=== PATIENT | female | born 1945 | race Caucasian/White ===

== ENCOUNTER → 2017-12-12 12:55 | Outpatient (CLI) | payer MEDICARE, MEDICAID ==
[~2017-12-12 12:55] MED LIST: ALENDRONATE SOD70 MG PO; ATIVAN1 MG PO; LUNESTA3 MG PO; PRAVACHOL40 MG PO; PRISTIQ50 MG PO; PROTONIX40 MG PO; ULTRAVATE50 GM TP; VENTOLIN HFA18 GM INH
[2017-12-26 07:23] VITALS: BMI 18.8
== END | disposition home or self-care (01) ==
LOC: D.US 12:55
DX: I73.9 Peripheral vascular disease, unspecified (principal)

== ENCOUNTER 2017-12-26 07:06 | Outpatient (CLI) | payer MEDICARE, MEDICAID ==
[~2017-12-26] VITALS: Ht 165.1 cm; Wt 51.4 kg
--- NOTE | ~2017-12-26 | HEMODYNAMI ---
PATIENT:SHARON QUIJANO MEDICAL RECORD: [id number] : 49 LOCATION:[facility] ADMISSION DATE: 12/26/17 Generatedon:12/26/201710:25 Patient name: SHARON QUIJANO Patient #: [id number] SSN: : 1945 Date of study: 12/26/2017 Page: Of Hemodynamic Procedure Report Patient Data Patient Demographics Procedure consent was obtained First Name: SHARON Gender: Female Last Name: SAMM : 1945 [facility] Initial: SHILPA Age: 72 year(s) Patient #: [id number] Race: Additional ID: [id number] Contact details Address: [address] [place] [address] State: [place] City: [place] Zip code: [address] Admission Admission Data Admission Date: 12/26/2017 Admission Time: 7:06 Procedure Procedure Types Cath Procedure Diagnostic Procedure Sedation Charges Moderate Sedation up to 15 minutes Peripheral Cath Diagnostic Procedure Cath Peripheral Tjutt-Zcxyzaz-Xfh-Off Procedure Description Procedure Date Procedure Date: 12/26/2017 Procedure Start Time: 10:10 Procedure End Time: 10:22 Procedure Staff Name Function Ganesh Stevens MD Performing Physician Diane Rodriguez RT Monitor Irish Gutierrez RT Scrub Justo Murillo RN Nurse Procedure Data Cath Procedure Fluoroscopy Diagnostic fluoroscopy Total fluoroscopy Time: 1.2 time: 1.2 min min Diagnostic fluoroscopy Total fluoroscopy dose: 86 dose: 86 mGy mGy Contrast Material Contrast Material Type Amount (ml) Isovue 300 67 Entry Location Entry Primary Successful Side Size Upsize Upsize Entry Closure Succes sful Closure Location (Fr) 1 (Fr) 2 (Fr) Remarks Device Remarks Femoral Left 5 Fr Exoseal artery Estimated blood loss: 5 ml Diagnostic catheters Device Type Used For End Catheter Placement DIAGNOSTIC UF 5Fr Multi-vessel catheter ([id number]) Angiography Procedure Complications No complications Procedure Medications Medication Administration Route Dosage Oxygen NC 2 l/min Lidocaine 2% added to field 20 Heparin Flush Bag added to field 2 bags (1000units/500ml NS) 0.9% NaCl I.V. 100 ml/hr Versed I.V. 1 mg Fentanyl I.V. 50 mcg Versed I.V. 1 mg Fentanyl I.V. 50 mcg Versed I.V. 1 mg Fentanyl I.V. 50 mcg Versed I.V. 1 mg Fentanyl I.V. 50 mcg Fentanyl I.V. 25 mcg Hemodynamics Rest Pre Cath Intra NCS Post Cath Vital Signs Time Heart Resp SPO2 etCO2 NIBP (mmHg) Rhythm Pain Sedation Rate (ipm) (%) (mmHg) Status Level (bpm) 9:45:42 77 10 96 0 143/57(90) NSR 0 (11) 10(A) , No pain 9:49:54 79 12 96 35.4 141/70(100) NSR 0 (11) 10(A) , No pain 9:54:08 70 16 98 0 131/62(95) NSR 0 (11) 10(A) , No pain 9:58:18 78 18 97 0 128/63(95) NSR 0 (11) 10(A) , No pain 10:02:26 75 15 97 38.5 127/67(105) NSR 0 (11) 10(A) , No pain 10:06:32 89 18 99 9 146/68(104) NSR 0 (11) 9(A) , No pain 10:10:45 84 15 98 19.6 142/64(95) NSR 0 (11) 9(A) , No pain 10:14:59 85 14 97 0 135/62(92) NSR 0 (11) 9(A) , No pain 10:19:11 91 15 98 0 133/58(91) NSR 0 (11) 9(A) , No pain Medications Time Medication Route Dose Verified Delivered Reason Notes Effe ctiveness by by 9:49:59 Oxygen NC 2 Ganesh Buffie used for l/min Rodney Murillo RN procedure 9:50:05 Lidocaine 2% added 20ml Ganesh Ganesh for local to vial Rodney Stevens MD anesthetic field 9:50:07 Versed I.V. 1 mg Ganesh Buffie for Rodney Murillo RN sedation 9:50:11 Heparin Flush added 2 Ganesh Ganesh used for Bag to bags Rodney Stevens MD procedure (1000units/500ml field NS) 9:50:12 Fentanyl I.V. 50 Ganesh Buffie for mcg Rodney Murillo RN sedation 9:50:21 0.9% NaCl I.V. 100 Ganesh Buffie Per ml/hr Rodney Murillo RN physician 10:00:35 Versed I.V. 1 mg Ganesh Buffie for Rodney Murillo RN sedation 10:00:39 Fentanyl I.V. 50 Ganesh Buffie for mcg Rodney Murillo RN sedation 10:07:57 Versed I.V. 1 mg Ganesh Buffie for Rodney Murillo RN sedation 10:08:02 Fentanyl I.V. 50 Ganesh Buffie for megan Murillo RN sedation 10:14:34 Versed I.V. 1 mg Ganesh Buffie for Rodney Murillo RN sedation 10:14:38 Fentanyl I.V. 50 Ganesh Buffie for mcg Rodney Murillo RN sedation 10:17:39 Fentanyl I.V. 25 Ganesh Buffie for mcg Rodney Murillo RN sedation Procedure Log Time Note 9:34:29 Informed consent obtained and on chart 9:34:32 Diagnostic Cath Status : Elective 9:34:48 Justo Murillo RN sent for patient. Start room use. 9:34:49 Time tracking: Regular hours (M-F 7:00 - 5:00) 9:34:58 Plan of Care:Hemodynamics will remain stable., Cardiac rhythm will remain stable., Comfort level will be maintained., Respiratory function will remain adequate., Patient/ family verbilizes understanding of procedure., Procedure tolerated without complication., Recovers from procedure without complications.. 9:44:23 Patient received from Pre/Post Procedure Room to CCL 2 Alert and oriented. Tansferred to table in Supine position. 9:44:24 Warm blankets applied, and josué hugger turned on for patient comfort. 9:44:25 Correct patient and procedure confirmed by team. 9:44:25 ECG and BP/O2 sat monitors applied to patient. 9:44:28 Vital chart was started 9:44:39 Rhythm: sinus rhythm 9:44:42 Full Disclosure recording started 9:45:07 H&P Date Dictated: 12/06/2017 Within 30 days and on chart., H&P Addendum completed by physician on day of procedure. (MUST COMPLETE FOR ALL OUTPATIENTS). 9:45:10 Family in waiting room. 9:45:11 Patient NPO since Midnight. 9:45:14 Is the patient allergic to Iodine/contrast media? No. 9:45:29 Was the patient premedicated? Yes 9:45:31 Is patient on blood thinner?No 9:45:53 Patient diabetic? No. 9:46:01 Snore? No 9:46:03 Sleep apnea? No 9:46:30 Deviated septum? No 9:46:31 Opens mouth fully? Yes 9:46:31 Sticks out tongue? Yes 9:46:35 Airway obstruction? Yes copd 9:47:23 Dentures? Yes in tight 9:47:36 Pre procedure: right dorsailis pedis pulse 1+ Palpable, but thready & weak; easily obliterated 9:47:40 Pre procedure: left dorsailis pedis pulse 1+ Palpable, but thready & weak; easily obliterated 9:47:42 Patient pain scale 0/10 ?. 9:47:48 IV patent on arrival in left hand with 0.9% NaCl at [facility]. 9:47:50 Lab results completed and on chart. 9:47:55 Bilateral groins area was prepped with chlora-prep and draped in sterile fashion 9:47:56 Alarms reviewed by R. N. 9:47:56 Sharps counted by scrub and verified by R.N. 9:47:58 Physician arrived 9:47:58 --------ALL STOP TIME OUT------ 9:47:59 Final Timeout: patient, procedure, and site verified with staff and physician. All members of the team are in agreement. 9:48:01 Bilateral groins site verified by team. 9:48:05 Physical assessment completed. ASA score P 2 - A patient with mild systemic disease as per Ganesh Stevens MD. 9:48:09 Sedation plan: IV Moderate Sedation Medication:Versed, Fentanyl 9:49:59 Oxygen 2 l/min NC was administered by Justo Murillo RN; used for procedure; 9:50:05 Lidocaine 2% 20ml vial added to field was administered by Ganesh Stevens MD; for local anesthetic; 9:50:07 Versed 1 mg I.V. was administered by Justo Murillo RN; for sedation; 9:50:11 Heparin Flush Bag (1000units/500ml NS) 2 bags added to field was administered by Ganesh Stevens MD; used for procedure; 9:50:12 Fentanyl 50 mcg I.V. was administered by Justo Murillo RN; for sedation; 9:50:21 0.9% NaCl 100 ml/hr I.V. was administered by Justo Murillo RN; Per physician; 9:58:18 Zero performed for pressure channel P1 10:00:35 Versed 1 mg I.V. was administered by Justo Murillo RN; for sedation; 10:00:39 Fentanyl 50 mcg I.V. was administered by Justo Murillo RN; for sedation; 10:06:27 Use device set Femoral Dx 10:06:29 ACIST Syringe (58505) opened to sterile field. 10:06:30 Bag Decanter (2002S) opened to sterile field. 10:06:31 Medline Cath Pack ([id number]) opened to sterile field. 10:06:31 DIAGNOSTIC WIRE .035 260cm J wire (445939) opened to sterile field. 10:06:33 ACIST Hand Control (19062) opened to sterile field. 10:06:34 ACIST Manifold (22030) opened to sterile field. 10:06:36 Tegaderm 4 x 4 (1626W) opened to sterile field. 10:06:38 SHEATH Prelude 5Fr 0.035 (TTA-6K-22-035) opened to sterile field. 10:07:57 Versed 1 mg I.V. was administered by Justo Murillo RN; for sedation; 10:08:02 Fentanyl 50 mcg I.V. was administered by Justo Murillo RN; for sedation; 10:09:00 Procedure started. 10:10:07 Local anesthetic to left femerol artery with Lidocaine 2% by Ganesh Stevens MD.INITIAL ACCESS ONLY 10:12:50 A 5 Fr sheath was inserted into the Left Femoral artery 10:13:13 A DIAGNOSTIC UF 5Fr catheter ([id number]) was advanced over the wire and used for Multi-vessel Angiography. 10:14:34 Versed 1 mg I.V. was administered by Justo Murillo RN; for sedation; 10:14:38 Fentanyl 50 mcg I.V. was administered by Justo Murillo RN; for sedation; 10:15:14 Abdominal angiogram w/ runoff was performed. 10:17:39 Fentanyl 25 mcg I.V. was administered by Justo Murillo RN; for sedation; 10:20:20 Catheter removed. 10:20:25 EXOSEAL 5Fr (EX500) opened to sterile field. 10:20:34 Sheath removed intact; hemostasis achieved with Exoseal to the Left Femoral artery. 10:20:36 Procedure ended.(Physican Out) 10:20:44 Fluoroscopy time 01.20 minutes. 10:20:48 Fluoroscopy dose: 86 mGy 10:20:48 Flurop Dose total: 86 10:20:52 Contrast amount:Isovue 300 67ml. 10:20:53 Sharps counted by scrub and verified by R.N. 10:20:54 Insertion/operative site no bleeding no hematoma. 10:20:59 Post-op/insertion site Left Femoral artery dressed using a 4 x 4 and Tegaderm. 10:21:03 Post left femerol artery:stable 10:21:05 Post Procedure Pulses reassessed and unchanged 10:21:08 Post procedure rhythm: unchanged. 10:21:10 Estimated blood loss: 5 ml 10:21:12 Post procedure instruction explained to patient.Patient verbalizes understanding. 10:21:12 Patient needs reinforcement of post procedure teaching. 10:21:28 Procedure type changed to Cath procedure, Diagnostic procedure, Sedation Charges, Moderate Sedation up to 15 minutes, Peripheral Cath Diagnostic Procedure, Cath Peripheral, Xwlqf-Hefvfkx-Wdo-Off 10:21:29 Procedure and supply charges have been captured, reviewed, submitted and are correct. 10:21:46 Procedure Complication : No complications 10:21:54 Vital chart was stopped 10:21:58 See physician's report for complete and final results. 10:22:01 Report given to Pre/Post Procedure Room. 10:22:03 Patient transfered to Pre/Post Procedure Room with Stretcher. 10:22:05 Procedure ended. 10:22:05 Full Disclosure recording stopped 10:22:09 End room use (Document Last) Device Usage Item Name Manufacture Quantity Catalog Number Hospital Part Current M inimal Lot# / Charge Number Stock Stock Serial# Code ACIST Syringe Acist 1 02887 [id number] 105746 362858 2 0 (91832) [employer] Bag Decanter Microtek 1 912110 80677 718128 5 () Medical Inc. Medline Cath Cardinal 1 [id number] 338068 68007 661291 5 Pack Health ([id number]) DIAGNOSTIC WIRE [place] 1 424075 033155 927690 176719 3 0 .035 260cm J wire (926324) ACIST Hand Acist 1 50959 316081 239552 542636 5 Control (22430) Medical Systems Inc ACIST Manifold Acist 1 73504 462582 091651 612046 5 (80079) Medical Systems Inc Tegaderm 4 x 4 3M 1 1626W 958871 503014 363853 5 (1626W) SHEATH Prelude Merit 1 WYG-5V-22-035 014880 464141 318990 5 5Fr 0.035 Medical ([id number]) DIAGNOSTIC UF Cardinal 1 [id number] 490786 411173 613413 1 0 5Fr catheter Health ([id number]) EXOSEAL 5Fr Cardinal 1 EX500 421323 421604 467420 1 0 (EX500) Health Signature Audit [place] Stage Time Signature Unsigned Intra-Procedure 12/26/2017 Diane Rodriguez 10:25:32 AM RT(R) Signatures Monitor : Diane Rodriguez RT Signature : Date : Time : [id number] [place] [address]
[2017-12-26] MEDS ORDERED: PRISTIQ50 MG PO (07:08)
[2017-12-26] MEDS ORDERED: LUNESTA3 MG PO (07:08)
[2017-12-26] MEDS ORDERED: ATIVAN1 MG PO (07:08)
[2017-12-26] MEDS ORDERED: PROTONIX40 MG PO (07:09)
[2017-12-26] MEDS ORDERED: PRAVACHOL40 MG PO (07:10)
[2017-12-26] MEDS ORDERED: ULTRAVATE50 GM TP (07:10)
[2017-12-26] MEDS ORDERED: VENTOLIN HFA18 GM INH (07:10)
[2017-12-26] MEDS ORDERED: ALENDRONATE SOD70 MG PO (07:11)
[2017-12-26 07:23] VITALS: BP 101/68; Ht 165.1 cm; Wt 51.4 kg
[2017-12-26 07:30] LABS: BASOPHILS 0.3 % (0-2); EOSINOPHILS 0.9 % (0-7); HEMATOCRIT 42.1 % (36.0-48.0); HEMOGLOBIN 14.4 g/dL (12-16); LYMPHOCYTES 23.2 % (15-50); MCH 33.3 pg (26.0-34.0); MCHC 34.2 g/dL (31.0-37.0); MCV 97.5 fL (80.0-100.0); MEAN PLATELET VOLUME 10.4 fL (7.4-10.4); MONOCYTES 8.6 % (2-11); PLATELET COUNT 171 10x3/uL (130-400); RBC 4.32 10x6/uL (4.00-5.40); RDW 13.6 % (11.5-14.5); WBC 6.4 10x3/uL (4.8-10.8)
[2017-12-26 07:42] LABS: CALC OSMOLALITY 279 mosm/kg (275-300); CALCIUM 8.8 mg/dL (8.5-10.1); CHLORIDE - SERUM 105 mmol/L (98-107); CREATININE - SERUM 0.8 mg/dL (0.6-1.3); GLUCOSE 79 mg/dL (74-106); POTASSIUM - SERUM 4.1 mmol/L (3.5-5.1); SODIUM 142 mmol/L (136-145); UREA NITROGEN 8 mg/dL (7-18); eGFR NON AFRICAN AMERICAN 75 mL/min (90-120)
[2018-03-04] MEDS ORDERED: ENTOCORT EC3 MG PO (11:01)
== END 2017-12-26 13:25 | disposition home or self-care (01) ==
LOC: D.CATH 07:06
PROVIDERS: Internal Medicine Cardiovascular Disease
DX: I70.211 Atherosclerosis of native arteries of extremities with intermittent claudication, right leg (principal); I70.92 Chronic total occlusion of artery of the extremities; Z01.812 Encounter for preprocedural laboratory examination

== ENCOUNTER → 2018-02-07 10:06 | Outpatient (CLI) | payer MEDICARE, MEDICAID ==
[2017-12-26 07:23] VITALS: BMI 18.8
[~2018-02-07 10:06] MED LIST changes: +BAYER CHEWABLE81 MG PO; +ENTOCORT EC3 MG PO; +NORCO-10 PO; +NORVASC10 MG PO; +PLAVIX75 MG PO
== END | disposition home or self-care (01) ==
LOC: D.CT 08:00
DX: I65.23 Occlusion and stenosis of bilateral carotid arteries (principal)

== ENCOUNTER 2018-03-05 05:00 | Inpatient (IN) | payer MEDICARE, MEDICAID ==
[2018-03-04 13:07] LABS: BASOPHILS 0.5 % (0-2); EOSINOPHILS 0.8 % (0-7); HEMOGLOBIN 14.1 g/dL (12-16); IMMATURE GRANULOCYTES 0.2 % (0-5); MCH 33.9 pg (26.0-34.0); MCHC 34.4 g/dL (31.0-37.0); MCV 98.6 fL (80.0-100.0); MEAN PLATELET VOLUME 10.5 fL (7.4-10.4); MONOCYTES 6.5 % (2-11); PLATELET COUNT 157 10x3/uL (130-400); RBC 4.16 10x6/uL (4.00-5.40); RDW 12.9 % (11.5-14.5); WBC 6.6 10x3/uL (4.8-10.8)
[2018-03-04 13:21] LABS: ALBUMIN 3.5 g/dL (3.4-5.0); ALKALINE PHOSPHATASE 39 U/L (46-116); ALT (SGPT) 23 U/L (10-68); BILIRUBIN - TOTAL 0.13 mg/dL (0.2-1.3); CALC OSMOLALITY 288 mosm/kg (275-300); CALCIUM 7.9 mg/dL (8.5-10.1); CARBON DIOXIDE 25.7 mmol/L (21.0-32.0); CHLORIDE - SERUM 110 mmol/L (98-107); CREATININE - SERUM 0.7 mg/dL (0.6-1.3); GLUCOSE 86 mg/dL (74-106); POTASSIUM - SERUM 3.8 mmol/L (3.5-5.1); PROTEIN - SERUM 6.6 g/dL (6.4-8.2); SODIUM 147 mmol/L (136-145); UREA NITROGEN 8 mg/dL (7-18); eGFR NON AFRICAN AMERICAN 88 mL/min (90-120)
[2018-03-04 13:30] LABS: APPEARANCE CLEAR (CLEAR); APTT 39.4 SECONDS (22.8-39.4); BACTERIA FEW /hpf (NONE SEEN); BILIRUBIN NEGATIVE (NEGATIVE); COLOR YELLOW (YELLOW); EPITHELIAL CELLS RARE /hpf (0-5); GLUCOSE NEGATIVE (NEGATIVE); INR 0.92 (0.85-1.17); KETONE NEGATIVE (NEGATIVE); NITRITE NEGATIVE (NEGATIVE); PROTEIN NEGATIVE (NEGATIVE); RED CELLS - URINE 0-5 /hpf (0-5); SPECIFIC GRAVITY 1.015 (1.005-1.020); UROBILINOGEN NORMAL (NORMAL)
[2018-03-05] VITALS (27 sets, daily range): BP systolic 105–147; BP diastolic 41–70; Ht 165.1 cm; Wt 51.5 kg
[~2018-03-05] VITALS: Ht 165.1 cm; Wt 51.5 kg
--- NOTE | ~2018-03-05 | OP ---
PATIENT NAME: SHARON QUIJANO MEDICAL RECORD: [id number] :49 LOCATION:[facility] ADMISSION DATE:03/05/18 SURGEON: CHRIS PATEL MD DATE OF OPERATION: 03/05/2018 SURGEON: Chris Patel MD JAVA DEVELOPMENT TEAM LEAD: Rosalio Cheng MD ANESTHESIA: General endotracheal, Guillermo Montano MD OPERATIONS PERFORMED: 1. Open exposure of right common femoral artery and primary repair. 2. Retrograde right external iliac arteriogram. 3. Cross, chronic total occlusion of the right common iliac artery. 4. Aortogram. 5. Sheath placement, left common femoral artery, percutaneously. 6. Retrograde left iliac arteriogram. 7. Stent, right common iliac artery using a 6 x 38 CAST stent. 8. Stent, left common iliac artery with a 7 x 38 CAST stent. 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 INDICATION FOR OPERATION: Life-limiting claudication. FINDINGS OF THE OPERATION: 1. Right retrograde external iliac arteriogram demonstrates chronic total occlusion of the right common iliac artery. 2. Cross of chronic total occlusion and aortogram demonstrates chronic total occlusion of the right common iliac artery and high-grade stenosis of the left common iliac artery. 3. Left retrograde external iliac arteriogram demonstrates proximal stenosis and left hypogastric artery stenosis at its takeoff, approximately 50%. 4. Aortogram demonstrates well-placed stents with no residual stenosis bilaterally. FLUORO TIME: 6 minutes 10 seconds. CONTRAST: 80 mL. ESTIMATED BLOOD LOSS: 100 mL. DESCRIPTION OF PROCEDURE: After informed consent, adequate preoperative medication, and evaluation, the patient was brought to the operating room and placed on the table in supine position. After induction of general endotracheal anesthesia and application of appropriate monitoring devices, the chest, abdomen, and both thighs were prepped and draped in sterile field utilizing Betadine scrub, alcohol, and Betadine solution. Betadine-impregnated drape was also used. Utilizing ultrasound and micropuncture technique, attempts were made to cannulate the right common femoral artery percutaneously. This was unsuccessful. Therefore, a transverse incision was made above the inguinal OPERATIVE REPORT [id number] SHARON QUIJANO ligament and dissection was carried down to the fascia. Hemostasis was maintained with electrocautery. The common femoral artery, profunda, and superficial femoral arteries were dissected free of surrounding structures, protecting the neurological structures. The common femoral artery was then punctured with a micropuncture technique and a 5-[place] sheath was placed. The patient was given 10,000 units of heparin. Utilizing a [place] wire, we were unable to cross the chronic total occlusion. Exchange was made for a [place] Floppy wire, which also met with resistance. Therefore, a [place] support catheter was then placed in the area of obstruction and the [place] Floppy wire was manipulated into the aorta. This was followed by the catheter. Aspiration of blood was easily performed. Injection was made in the aorta that demonstrated good position. Exchange was then made for an Amplatz wire. Attention was then turned towards the left side percutaneously. The common femoral artery was identified with ultrasound, punctured, and exchange was made for a 5-[place] sheath. A retrograde arteriogram was performed, delineating the anatomy. A Glidewire was placed into the aorta followed by a catheter and exchange was made for an Amplatz wire. The exchange was made on the right and left for 7-[place]itt[place] sheaths. An aortogram was performed that delineated the anatomy and chronic total occlusion of the right iliac. Utilizing the CAST stents, 6 x 38 on the right and 7 x 38 on the left utilizing a kissing stent technique, the stents were deployed. The catheters were removed. Exchange was made for a pigtail catheter. An aortogram demonstrated excellent flow through both iliac arteries with open hypogastrics bilaterally and good flow distally. The wires, catheters, and sheaths were removed on the right and the artery was closed in 2 layers of 7-0 Prolene suture. All maneuvers to remove trapped air were performed. Clamps were removed with excellent flow distally. An 8-[place] Angio-Seal was then placed in the left common femoral artery with good hemostasis. The patient was given a calculated dose of protamine to reverse the heparin. Hemostasis was achieved. Wound was irrigated with copious amounts of antibiotic solution and normal saline. The right groin was closed utilizing 2-0 Vicryl on deep subcutaneous tissue, 3-0 Vicryl on superficial subcutaneous tissue, and skin approximated with 5-0 subcuticular Monocryl. Sterile dressings were applied. The patient tolerated the procedure well and was transferred to cardiovascular recovery in stable condition. TRANSINT:[id number] Voice Confirmation ID: [id number] DOCUMENT ID: [id number] CHRIS PATEL MD CC: [id number] DICTATION DATE: 03/05/18 1137 DONOR RECRUITMENT MANAGER: 03/05/18 1226 ADM IN [facility] [address] [place] [address]
--- NOTE | ~2018-03-05 | HP ---
PATIENT: SHARON QUIJANO MEDICAL RECORD: [id number] ACCOUNT: [id number] LOCATION:D.OPS : 47 ADMISSION DATE: 03/05/18 PCP: DENISE PATEL MD HISTORY AND PHYSICAL EXAMINATION NameSHARON QUIJANO (72yo, F) ID# [id number]. Date/Time02/20/2018 10:78KXQMX33/22/1946Service Dept.NPP_[facility] ClinicProviderEDMARCELA PATEL MDInsuranceMed Primary: [facility] Insurance # : [id number] Referring Provider Name : NILAM DE PAZ Employer Name : NONE LISTED Med Secondary: [place] Insurance # : [id number] Employer Name : NONE LISTED Prescription: CMX - Member is eligible. Prescription: [employer] - Member is eligible. Chief Complaint Followup: Peripheral vascular disease following pvd/claudication 3 week f/u cta abd/pelvis Patient's Care Team Referring Provider (): NILAM DE PAZ: [address] [place] [phone], , Gas Inspector: PAUL ENRIQUEZ MD: [address] [place] [phone], , [id number] ([facility]): [address] [facility] [id number], , Vitals BP:118/62 sitting L arm 02/20/2018 10:57 amHR:78/reg 02/20/2018 10:56 amHt:5 ft 5 in 02/20/2018 10:53 amWt:112 lbs 02/20/2018 10:57 amBMI:18.6 02/20/2018 10:57 amAllergies Reviewed Allergies NKDAMedications Reviewed Medications alendronate 70 mg tablet TK 1 T PO Q WEEK01/24/18 filledCaremarkApriso 0.375 gram capsule,extended lzlqixf56/22/[address] - ER 3 mg capsule,delayed,extended release TK 3 CS PO QD01/28/18 filledCaremarkChantix Starting Month Box 0.5 mg (11)-1 mg (42) tablets in dose pack12/13/16 filledCaremarkdesvenlafaxine succinate ER 50 mg tablet,extended release 24 hr TK 1 T PO QD02/13/18 filledCaremarkeszopiclone 3 mg ozrlen30/16/18 filledCaremarkFosamax 70mg01/03/18 enteredErinadya Hanhalobetasol propionate 0.05 % topical wvuvpioz15/16/18 filledCaremarkLORazepam 1 mg tablet TK 1 T PO TID02/14/18 filledCaremarkpantoprazole 40 mg tablet,delayed release TK 1 T PO QD01/16/18 filledCaremarkpravastatin 40 mg tablet TK 1 T PO ONCE D007/31/17 filledCaremarkPristiq 50mg daily01/03/18 enteredErinadya JimenezkinsVentolin HFA 90 mcg/actuation aerosol inhaler INHALE 2 PUFFS PO QID PRF SHORTNESS OF KQECGL18/22/18 filledCaremarkProblems Reviewed Problems Hyperlipidemia HISTORY AND PHYSICAL [id number] SHARON QUIJANO Peripheral vascular disease Family History Reviewed Family History Social History Reviewed Social History Smoking Status: Current every day smoker Surgical History Reviewed Surgical History P-mastectomy w/ln removal - 06/24/2015 Hysterectomy/bladder repair - 06/24/2014 afro 12/26/17 [employer] History (not configured) Past Medical History Reviewed Past Medical History Hyperlipidemia: Y Pain in legs when walking: Y Peripheral Vascular Disease (PVD): Y Documents for Discussion Discussed the following documents: CT, ABDOMEN + PELVIS, W/WO CONTRAST - 02/07/18 Notes - agree with interpretation Discussed with patient and daughter US, DUPLEX, CAROTID ARTERY - 02/07/18 Notes - bbilateral 50% stenosis Screening None recorded. HPI Peripheral Vascular Disease Reported by patient. Location: calf; foot; R>L Quality: cramping; burning Severity: interferes with normal activity; moderate Duration: has noted for years Onset/Timing: continuous; daily Context: during walking; at rest Alleviating Factors: rest Aggravating Factors: walking Associated Symptoms: weakness; numbness claudication right lower extremity ROS Patient reports weight loss (1 lbs) and exercise intolerance but reports no fever, no night sweats, and no significant weight gain. She reports cough and shortness of breath but reports no wheezing and no coughing up blood. She reports arthralgias/joint pain and back pain but reports no muscle aches, no muscle weakness, and no swelling in the extremities. Sh e reports no dry eyes, no irritation, and no vision change. She reports no difficulty hearing and no ear pain. She reports no frequent nosebleeds and no nose/sinus problems. She reports no sore throat, no bleeding gums, no snoring, no dry mouth, no mouth u lcers, no oral abnormalities, and no teeth problems. She reports no jugular vein distension and no swollen glands. She reports no chest pain, no arm pain on exertion, no shortness of breath when walking, no shortness of breath when lying down, no palpitat i ons, and no known heart murmur. She reports no abdominal pain, no vomiting, normal appetite, HISTORY AND PHYSICAL [id number] SAMM,SHARON SHILPA no diarrhea, not vomiting blood, no nausea, and no constipation. She reports no incontinence, no difficulty urinating, no hematuria, and no increased frequency. S h e reports no abnormal mole, no jaundice, and no rashes. She reports no loss of consciousness, no weakness, no numbness, no seizures, no dizziness, and no headaches. She reports no depression, no sleep disturbances, feeling safe in relationship, and no alc ohol abuse. She reports no fatigue. She reports no swollen glands and no bruising. She reports no runny nose, no sinus pressure, no itching, no hives, and no frequent sneezing. ROS as noted in the HPI Physical Exam Patient is a 72-year-old female. Constitutional: General Appearance healthy-appearing and thin. Level of Distress NAD. Ambulation limited ambulation. Cardiovascular: Apical Impulse not displaced or no thrill. Heart Auscultation normal s1 and s2; no murmurs, rubs, or gallops; and RRR. Arterial P ulses no abdominal aorta bruits, femoral bruits, or popliteal bruits; femoral not palpable (rright), popliteal not palpable (bilateral ), and dorsalis pedis not palpable (bilateral); and 2+ bilateral, carotid 2+ bilateral, and femoral 2+ bilateral. Edema no edema or varicosities. Lungs: Repiratory Effort no dyspnea. Percussion no dullness or flatness and hyperresonance . Auscultation no wheezing, rhonchi, or rales / crackles and breathing sounds normal, good air movement, and CTA except as noted. Abdomen: Bowl Sounds normal. Inspection and Palpation no tenderness, guarding, masses, or rebound tenderness and soft and non-distended. Liver non-tender and no hepatomegaly. Spleen non-tender and no splenomegaly. Hernia none palpable. Musculoskeletal System: Gait And Stance normal gait and stance. Digits and Nails normal nails and no cyanosis. Neurologic: Cranial Nerves grossly intact. Reflexes DTRs 2+ bilaterally throughout. Sensation grossly intact. Lymph Nodes: Lymph Nodes no cervical LAD, supraclavicular LAD, axillary LAD, or inguinal LAD. Eyes: Lids and Conjunctivae no discharge or pallor and non-injected. Pupils PERRLA. Cornea grossly intact. EOM EOMI. Lens clear. Sclera non-icteric. Neck: Neck no masses, enlarged lymph nodes, or carotid bruits and supple and trachea midline. Thyroid no enlargement or nodules and non-tender. Skin: Inspection and Palpation no rash, lesions, ulcers, jaundice, or abnormal nevi. 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 Peripheral vascular disease I73.9: Peripheral vascular disease, unspecified PERIPHERAL ARTERIAL DISEASE OF THE LEG: CARE INSTRUCTIONS Discussion Notes I have discussed the patient's disease process with her and her daughter in detail HISTORY AND PHYSICAL [id number] SHARON QUIJANO as well as the alternative methods of treatment we discussed endovascular and open femoral-femoral bypass including the expected benefits and risk which include bleeding, infection, stroke, , loss of limb, and the imponderables. She understands all o f the above and wishes to proceed with planned surgery She would benefit from [facility] covered stents call and Scheduled for surgery contact the Rep also DENISE PATEL MD CC: [id number] DICTATION DATE: 02/20/18 1020 PROCESSING CLERK: LARISSA 03/04/18 130[address] [facility] [address] [id number]
[~2018-03-05 05:00] MED LIST changes: -BAYER CHEWABLE81 MG PO; -NORCO-10 PO; -NORVASC10 MG PO; -PLAVIX75 MG PO
[2018-03-06] VITALS (13 sets, daily range): BP systolic 110–137; BP diastolic 43–76
[2018-03-06 05:46] LABS: HEMATOCRIT 33.7 % (36.0-48.0); HEMOGLOBIN 11.3 g/dL (12-16); MCH 32.9 pg (26.0-34.0); MCHC 33.5 g/dL (31.0-37.0); MCV 98.3 fL (80.0-100.0); MEAN PLATELET VOLUME 10.1 fL (7.4-10.4); RBC 3.43 10x6/uL (4.00-5.40); RDW 13.1 % (11.5-14.5); WBC 7.1 10x3/uL (4.8-10.8)
[2018-03-06 06:24] LABS: CALC OSMOLALITY 287 mosm/kg (275-300); CALCIUM 7.5 mg/dL (8.5-10.1); CARBON DIOXIDE 28.2 mmol/L (21.0-32.0); CHLORIDE - SERUM 109 mmol/L (98-107); CREATININE - SERUM 0.7 mg/dL (0.6-1.3); GLUCOSE 86 mg/dL (74-106); POTASSIUM - SERUM 3.6 mmol/L (3.5-5.1); SODIUM 147 mmol/L (136-145); eGFR NON AFRICAN AMERICAN 88 mL/min (90-120)
[2018-03-06 06:32] LABS: UREA NITROGEN 4 mg/dL (7-18)
[2018-03-06] MEDS ORDERED: PLAVIX75 MG PO (09:30)
[2018-03-06] MEDS ORDERED: NORVASC10 MG PO (09:31)
[2018-03-06] MEDS ORDERED: BAYER CHEWABLE81 MG PO (09:34)
[2018-03-06] MEDS ORDERED: NORCO-10 PO (09:36)
== END 2018-03-06 16:13 | disposition home or self-care (01) | DRG 253 ==
LOC: D.OPS 05:00 → D.CVICU 10:55
PROVIDERS: Internal Medicine Cardiovascular Disease
PROC: 047C0DZ Dilation of Right Common Iliac Artery with Intraluminal Device, Open Approach (ICD-10-PCS; 2018-03-05)
PROC: B41D1ZZ Fluoroscopy of Aorta and Bilateral Lower Extremity Arteries using Low Osmolar Contrast (ICD-10-PCS; 2018-03-05)
PROC: 047D0DZ Dilation of Left Common Iliac Artery with Intraluminal Device, Open Approach (ICD-10-PCS; principal; 2018-03-05 07:30)
DX: I70.213 Atherosclerosis of native arteries of extremities with intermittent claudication, bilateral legs (principal); I70.92 Chronic total occlusion of artery of the extremities; F17.200 Nicotine dependence, unspecified, uncomplicated; E78.5 Hyperlipidemia, unspecified; I10 Essential (primary) hypertension; J44.9 Chronic obstructive pulmonary disease, unspecified